=== PATIENT | male | born 1940 | race Two or more races ===

== ENCOUNTER 2023-05-05 08:44 | Outpatient (CLI) | payer OTHER | END 2023-05-05 08:51 | disposition home or self-care (01) | LOC: TOM 08:44 | PROVIDERS: ATTEND Internal Medicine Gastroenterology | DX: K56.609 Unspecified intestinal obstruction, unspecified as to partial versus complete obstruction (principal); R10.84 Generalized abdominal pain; K63.5 Polyp of colon ==